=== PATIENT | male | born 1965 | race Caucasian/White ===

== ENCOUNTER 2024-09-20 08:36 | Inpatient (IN) | payer OTHER ==
[2024-09-20 09:08] VITALS: BMI 34.9
[2024-09-20] MEDS ORDERED: MAG HYDROX/AL HYDROX/SIMETH 30 ML UNIT-DOSE CUP PO PRN (10:14)
[2024-09-20] MEDS ORDERED: BENZONATATE 200 MG CAPSULE PO PRN (10:14)
[2024-09-20] MEDS ORDERED: BISMUTH SUBSALICYLATE 524 MG/30 ML PO PRN (10:14)
[2024-09-20] MEDS ORDERED: POLYETHYLENE GLYCOL (HEALTHYLAX) 3350 17 GM PACKET PO PRN (10:14)
[2024-09-20] MEDS ORDERED: ACETAMINOPHEN 325 MG TABLET (FP) PO PRN (10:14)
[2024-09-20] MEDS ORDERED: BENZOCAINE/MENTHOL (CHLORASEPTIC ) LOZENGE MM PRN (10:14)
[2024-09-20] MEDS ORDERED: diazePAM 5 MG TABLET PO PRN (10:14)
[2024-09-20] MEDS ORDERED: LOPERAMIDE HCL 2 MG CAPSULE PO PRN (10:14)
[2024-09-20] MEDS ORDERED: ONDANSETRON *ODT* 4 MG TABLET SL PRN (10:14)
[2024-09-20] MEDS ORDERED: IBUPROFEN 400 MG TABLET (FP) PO PRN (10:14)
[2024-09-20] MEDS ORDERED: MAGNESIUM HYDROX 2400MG/30ML ORAL SUSPENSION 30 ML CUP PO PRN (10:14)
[2024-09-20] MEDS ORDERED: DICYCLOMINE HCL 10 MG CAPSULE PO PRN (10:14)
[2024-09-20] MEDS ORDERED: guaiFENesin 600 MG TABLET.ER (FP) PO PRN (10:14)
[2024-09-20] MEDS ORDERED: NALOXONE (NARCAN) HCL 4 MG/0.1 ML SPRAY NS PRN (10:14)
[2024-09-20] MEDS ORDERED: diazePAM 5 MG TABLET ONE (10:28)
[2024-09-20] MEDS ORDERED: methaDONE HCL 10 MG TABLET ONE (10:29)
[2024-09-20] MEDS: diazePAM 5 MG TABLET PO SCH (10:35)
[2024-09-20] MEDS: methaDONE HCL 10 MG TABLET PO ONE (10:35)
[2024-09-20] MEDS: cloNIDine HCL 0.1 MG TABLET PO SCH (13:48)
[2024-09-20] MEDS: MELATONIN 5 MG TABLETS PO SCH (22:19)
[2024-09-20] MEDS: THIAMINE 100 MG TABLET PO SCH (22:19)
[2024-09-21] MEDS: methaDONE HCL 40 MG DISPERSABLE TABLET PO SCH (05:42)
[2024-09-21] MEDS: PRENATAL VITAMINS W/ FOLIC ACID TABLET (FP) PO SCH (10:23)
[2024-09-21] MEDS: methaDONE HCL 10 MG TABLET PO ONE (10:24)
[2024-09-21 11:12] LABS: MCH 29.5 pg (25.7-33.7); MCHC 33.4 g/dl (32.0-35.9); MEAN CELL VOLUME 88.3 fl (80-96); MEAN PLT VOLUME 9.2 fl (7.5-11.1); PLATELET COUNT 211 10^3/uL (134-434); RBC 4.42 M/mm3 (4.00-5.60); RDW 13.6 % (11.9-15.9); WHITE BLOOD COUNT 4.8 K/mm3 (4.0-10.0)
[2024-09-21 12:07] LABS: POTASSIUM 3.6 mmol/L (3.5-5.1)
[2024-09-21 12:26] LABS: ALBUMIN 3.5 g/dl (3.4-5.0); BLOOD UREA NITROGEN 18.9 mg/dL (7-18); CALCIUM 9.7 mg/dL (8.5-10.1)
[2024-09-21 12:30] LABS: CREATININE 1.8 mg/dL (0.55-1.3)
[2024-09-21 12:31] LABS: BILIRUBIN,TOTAL 0.4 mg/dL (0.2-1); TOT PROT 7.4 g/dl (6.4-8.2)
[2024-09-22] MEDS: diazePAM 5 MG TABLET PO SCH (05:22)
[2024-09-22] MEDS: methaDONE HCL 10 MG TABLET PO ONE (09:34)
[2024-09-22] MEDS: cloNIDine HCL 0.1 MG TABLET PO PRN (22:10)
[2024-09-23] MEDS: diazePAM 5 MG TABLET PO SCH (05:40)
[2024-09-23] MEDS: methaDONE HCL 40 MG DISPERSABLE TABLET PO ONE (10:17)
[2024-09-24] MEDS: diazePAM 5 MG TABLET PO ONE (05:59)
[2024-09-24] MEDS: methaDONE 40 MG, methaDONE 10 MG PO ONE (09:58)
[2024-09-24] MEDS: METHOCARBAMOL 500 MG TABLET PO PRN (20:44)
[2024-09-24] MEDS: ASPIRIN 81 MG CHEWABLE TABLETS PO ONE (21:22)
[2024-09-24] MEDS: IBUPROFEN 600 MG TABLET (FP) PO PRN (21:23)
[2024-09-24] MEDS: hydrOXYzine PAMOATE 25 MG CAPSULE (FP) PO PRN (21:23)
[2024-09-24] MEDS: CALCIUM (OYSTER SHELL) 500 MG TABLET (FP) PO ONE (22:29)
[2024-09-25 06:02] VITALS: PULSE 60
[2024-09-25 08:49] VITALS: BP 147/89; RESP 17; TEMP 97.6
[2024-09-25] MEDS: methaDONE 40 MG, methaDONE 20 MG PO ONE (09:55)
[2024-09-25] MEDS: NALOXONE (NYS OPIOID OVERDOSE PROGRAM) 4 MG/0.1 ML SPRAY NS PRN (11:05)
== END 2024-09-25 11:12 | disposition home or self-care (01) | DRG 897 ==
LOC: YASAS 08:36 → Y3N 10:43
PROVIDERS: ADMIT Allergy & Immunology; ATTEND Surgery
PROC: HZ2ZZZZ Detoxification Services for Substance Abuse Treatment (ICD-10-PCS; principal; 2024-09-20)
DX: F11.23 Opioid dependence with withdrawal (principal); F13.20 Sedative, hypnotic or anxiolytic dependence, uncomplicated; F10.230 Alcohol dependence with withdrawal, uncomplicated
CPT/HCPCS: 36415; 80053; 80305; 80307; 85027; 86780; 93005; 93010